=== PATIENT | male | born 1990 | race African-American/Black ===

== ENCOUNTER 2018-05-18 15:31 | Outpatient (CLI) | payer OTHER ==
--- NOTE | 2018-05-18 16:07 | RAD ---
TWO VIEWS LUMBOSACRAL SPINE 05/18/18 COMPARISON: None. HISTORY: Dorsalgia with tingliness down both legs. FINDINGS: Two views lumbosacral spine shows normal height and alignment of the vertebral bodies and interverteb ral discs without fracture or subluxation. No degenerative changes are seen. IMPRESSION: Unremarkable exam. POS: JASEN
== END 2018-05-18 15:32 | disposition home or self-care (01) ==
LOC: BICRAD 15:31
PROVIDERS: ATTEND Family Medicine
DX: M54.9 Dorsalgia, unspecified (principal)
CPT/HCPCS: 72100